=== PATIENT | male | born 1970 | race Caucasian/White ===

== ENCOUNTER 2019-03-20 07:28 | Day surgery (SDC) | payer BC ==
[~2019-03-20] VITALS: Ht 188 cm; Wt 111.1 kg
[~2019-03-20 07:28] MED LIST: GLUCOPHAGE1000 MG PO; LISINOPRIL10 MG PO; OMEPRAZOLE20 M1 PO; ZOCOR20 MG PO
[2019-03-20 08:06] LABS: HEMATOCRIT 41.1 % (42.0-54.0); HEMOGLOBIN 13.9 g/dL (13.5-17.5); MCH 30.3 pg (26.0-34.0); MCHC 33.8 g/dL (31.0-37.0); MCV 89.7 fL (80.0-100.0); MEAN PLATELET VOLUME 9.5 fL (7.4-10.4); RBC 4.58 10x6/uL (4.20-6.10); RDW 12.8 % (11.5-14.5); WBC 8.4 10x3/uL (4.8-10.8)
[2019-03-20 08:13] LABS: CALC OSMOLALITY 281 mosm/kg (275-300); CALCIUM 9.2 mg/dL (8.5-10.1); CARBON DIOXIDE 30.1 mmol/L (21.0-32.0); CHLORIDE - SERUM 102 mmol/L (98-107); CREATININE - SERUM 0.9 mg/dL (0.6-1.3); GLUCOSE 141 mg/dL (74-106); POTASSIUM - SERUM 4.2 mmol/L (3.5-5.1); SODIUM 139 mmol/L (136-145); UREA NITROGEN 18 mg/dL (7-18); eGFR NON AFRICAN AMERICAN > 90 mL/min (90-120)
[2019-03-20 09:10] VITALS: BP 121/82; Ht 188 cm; Wt 111.1 kg
--- NOTE | 2019-03-20 14:16 | NUR ---
PT WAS IN PAIN 8/10 AND SHIVERING POST OP. WAS GOING TO PROVIDE DEMEROL HOWEVER PT HAS AN ALLERGY. PROVIDED WARM BLANKETS FOR SHIVERING AND IT RESOLVED. PROVIDED PRN DILAUDID AND PAIN WAS NOW TOLERABLE. PT STABLE AND WILL TRANSFER TO OUTPATIENT SHORTLY. PT DENIES ANY FURTHER NEEDS FROM ME AT THIS TIME. HARD SCRIPT IN CHART FOR PAIN MEDICATION.
--- NOTE | 2019-03-20 18:40 | OP ---
PATIENT NAME: AWA FIGUEROA MEDICAL RECORD: [id number] :68 LOCATION:[facility] ADMISSION DATE: SURGEON: DIEGO VANESSA MD DATE OF OPERATION: 03/20/2019 PREOPERATIVE DIAGNOSES: Nasal obstruction, turbinate hypertrophy, chronic tonsillitis, and recurrent uvula edema. POSTOPERATIVE DIAGNOSES: Nasal obstruction, turbinate hypertrophy, chronic tonsillitis, and recurrent uvula edema. PROCEDURES: Tonsillectomy, uvulectomy, and bilateral inferior turbinate reduction. SURGEON: Diego Vanessa MD ANESTHESIA: General orotracheal. BLOOD LOSS: Less than 5 cc. SPECIMENS: Right and left tonsil. COMPLICATIONS: None. NASAL PACKING: None. DISPOSITION: Recovery stable. DESCRIPTION OF PROCEDURE: He was brought to the operating room and placed in supine position, sedated and intubated by anesthesia. The eyes were taped. Table was turned 90 degrees. Head drapes were applied. He was positioned for tonsillectomy. Using a headlight and nasal speculum, the nose was examined. Both inferior turbinates were injected with a total of less than 1 cc of 1% lidocaine with 1:100,000 epinephrine. Two Afrin pledgets were placed in each side of the nose. The Thang-Demetris mouth gag was carefully inserted and elevated on a towel on his chest. The palate was examined and palpated. It was normal. A red rubber catheter was placed to the right side of the nose and the pharynx was grasped with tonsil clamp to retract the soft palate. Using a mirror, the nasopharynx was examined. There was no significant adenoid tissue. The posterior aspect of the inferior turbinates was cauterized with suction cautery. The choanae and eustachian orifices were normal bilaterally. The red rubber catheter was let down and removed. The right tonsil was grasped at the superior pole with a straight Allis clamp. Spatula tip cautery on a setting of 8 was used to dissect out the tonsil along its capsule preserving the anterior and posterior tonsillar pillar. The left tonsil was removed in the same fashion. Then, the uvula was grasped at the tip with an Allis. The mucosa was incised and all the nasopharyngeal mucosa was preserved where the uvula was taken off of its base. The Afrin pledgets were removed. Both sides of the nose were irrigated with saline. The pharynx was suctioned. Tonsillar fossae were agitated. Suction cautery on a setting of 18 was used to control minimal oozing. With the field completely clean and dry, a 3-0 Vicryl was used to close the superior tonsillar fossils and the uvula defect with interrupted and horizontal mattress sutures. Once that was completed, the Thang-Demetris mouth gag was let down and removed. Both sides of the nose were examined with a nasal speculum. The turbinates were medialized with a freer. A Santa was used to OPERATIVE REPORT [id number] AWA FIGUEROA take down the inferior redundant portion of the turbinate. Suction cautery on a setting of 25 was used to stop any bleeding and then they both outfractured with a Cass elevator. The nasopharynx was suctioned. With the field clean and dry, he was awakened, extubated, and transported to recovery in good condition. No complications. TRANSINT:[id number] Voice Confirmation ID: [id number] DOCUMENT ID: [id number] DIEGO VANESSA MD at 1840 CC: [id number] DICTATION DATE: 03/20/19 1345 [employer] [facility]: 03/20/[address] [facility] 03/20/19 [facility] [address] [place] [address]
--- NOTE | 2019-03-20 18:40 | HP ---
PATIENT: AWA TRAVIS MEDICAL RECORD: [id number] ACCOUNT: [id number] LOCATION:[facility] : 68 ADMISSION DATE: 03/20/19 PCP: MANDEEP BRAND MD HISTORY AND PHYSICAL EXAMINATION HISTORY: Mr. Travis is a 48-year-old male with problems with chronic tonsillitis, nasal obstruction, and recurrent uvula edema. He is being admitted for tonsillectomy, uvulectomy, and bilateral inferior turbinate reduction. PAST MEDICAL HISTORY: Includes diabetes, hypertension, and some seasonal allergies. ALLERGIES: DAYPRO. PHYSICAL EXAMINATION: GENERAL: He is healthy appearing and developmentally normal. FACE: Normal and symmetric. No lesions. EYES: Sclerae and conjunctivae are normal. EARS: Canals and TMs are normal. Large turbinates. ORAL CAVITY OROPHARYNX: Long and thick uvula with 3+ tonsils. NECK: No masses. No adenopathy. CHEST: Clear. CARDIOVASCULAR: Regular rate and rhythm. No murmur. EXTREMITIES: Normal. IMPRESSION: Recurrent uvula edema, chronic tonsillitis, snoring, and nasal obstruction. PLAN: Uvulectomy, tonsillectomy, and bilateral inferior turbinate reduction. TRANSINT:[id number] Voice Confirmation ID: [id number] DOCUMENT ID: [id number] DIEGO MIN MD at 1840 CC: [id number] DICTATION DATE: 03/16/19 1609 [employer] MANAGER: 03/16/19 1700 [facility] 03/20/19 [facility] [address] [place] [id number]
== END 2019-03-20 16:40 | disposition home or self-care (01) ==
LOC: D.OPS 07:28 → D.PAN 08:15 → D.OPS 08:15
PROVIDERS: Anesthesiology; ATTEND Otolaryngology
DX: J34.89 Other specified disorders of nose and nasal sinuses (principal); J34.3 Hypertrophy of nasal turbinates; J35.01 Chronic tonsillitis; K13.79 Other lesions of oral mucosa; Z01.812 Encounter for preprocedural laboratory examination; E11.9 Type 2 diabetes mellitus without complications; I10 Essential (primary) hypertension